=== PATIENT | female | born 1995 | race Caucasian/White ===

== ENCOUNTER 2018-01-04 19:11 | Emergency (ER) | payer OTHER ==
[2018-01-04] MEDS ORDERED: IBUPROFEN 600 MG TAB PO ONE (19:28)
[2018-01-04] MEDS ORDERED: HYDROCODONE/APAP 5/325 TAB PO ONE (21:53)
--- NOTE | 2018-01-04 21:56 | EDPHY ---
H & P Stated Complaint: Dog leash versus L palm lac Time Seen by Provider: 01/04/18 19:58 HPI/ROS: Chief complaint: Left hand laceration History of present illness: This is a 22-year-old female who presents to the emergency department for a left hand laceration. The palm of her hand got caught on the clip of a dog leash cutting it. She reports pain and bleeding that has been controlled with a dressing. No report of paresthesias or abnormal coolness in the hand or digits. She is still able to move the hand well. Her tetanus is up-to-date. - Personal History LMP (Females 10-55): 15-21 Days Ago Current Tetanus/Diphtheria Vaccine: Unsure Current Tetanus Diphtheria and Acellular Pertussis (TDAP): Unsure - Medical/Surgical History Hx Asthma: No Hx Chronic Respiratory Disease: No Hx Diabetes: No Hx Cardiac Disease: No Hx Renal Disease: No Hx Cirrhosis: No Hx Alcoholism: No Hx HIV/AIDS: No Hx Splenectomy or Spleen Trauma: No Other PMH: Denies. - Social History Smoking Status: Never smoked - Physical Exam Exam: General: Alert, nontoxic. Skin: Patient is a 3 cm avulsion injury extending from the palm up onto the lateral side of the left 5th finger. Inspection does not reveal foreign body or deep structure injury. Musculoskeletal: She is flexing and extending all joints in all digits in all perez although it causes pain in her left 5th finger. She can move the wrist well. Vascular: Capillary refill brisk in all digits of the left hand. Radial pulse 2 +. Neurologic: Sensation appears intact in all digits of the left hand as well as the rest the left hand. Constitutional: Initial Vital Signs Heart Rate 108 H 01/04/18 19:23 Respiratory Rate 18 01/04/18 19:23 Blood Pressure 135/84 H 01/04/18 19:23 O2 Sat (%) 99 01/04/18 19:23 O2 Delivery Mode Room Air Allergies/Adverse Reactions: antibiotics Allergy (Unknown, Uncoded 01/04/18 19:22) Anaphylaxis Home Medications: Medication Instructions Recorded NK [No Known Home Meds] 01/04/18 Medical Decision Making Procedures: Procedure: Laceration repair. Verbal consent was obtained from the patient. The 3 cm laceration on the left hand was anesthetized in the usual fashion. The wound was irrigated, draped and explored to its base with a gloved finger. There were no deep structures involved. No tendon injury was identified. No foreign bodies identified. The wound was repaired with 5 0 Prolene, 7 simple interrupted sutures. The wound repair was simple. The procedure was performed by myself. Procedure: Splint placement. An ulnar gutter splint was applied. After application of the splint I returned and re-examined the patient. The splint was adequately immobilizing the joint and distal to the splint the patient's circulation and sensation was intact. ED Course/Re-evaluation: Patient seen under the supervision of my secondary supervising physician Dr. Drake Montano. Patient presents for a laceration to her left hand. The hand does appear to be neurovascularly intact. She does appear to have good musculoskeletal control. The wound is anesthetized, cleaned, repaired, dressed and then placed in a splint to facilitate healing. I will refer her to a hand surgeon for recheck. Home care is discussed. Return precautions are given. The patient voiced understanding and agreement with plan. Differential Diagnosis: Included but not limited to laceration, foreign body contamination, deep structure injury - Data Points Medications Given: Discontinued Medications Hydrocodone Bitart/Acetaminophen ([place] 5/325) 1 tab PO EDNOW ONE Stop: 01/04/18 21:54 Last Admin: 01/04/18 22:24 Dose: Not Given Hydrocodone Bitart/Acetaminophen ([place] 5/325mg Prepack#6) 1 btl TAKEHOME EDNOW ONE Stop: 01/04/18 22:22 Last Admin: 01/04/18 22:22 Dose: 1 btl Ibuprofen (Motrin) 600 mg PO EDNOW ONE Stop: 01/04/18 19:29 Last Admin: 01/04/18 19:32 Dose: 600 mg Departure - Departure Disposition: Home, Routine, Self-Care Clinical Impression: Hand laceration Qualifiers: Encounter type: initial encounter Foreign body presence: without foreign body Laterality: left Qualified Code(s): S61.412A - Laceration without foreign body of left hand, initial encounter Condition: Good Instructions: Hydrocodone/Acetaminophen (By mouth), Care For Your Stitches (ED) , Laceration (ED), Acute Wounds (ED) Additional Instructions: Follow-up with a hand doctor next week for recheck Stitches to be removed in approximately 10 days If symptoms worsen or new symptoms develop return to the emergency room for recheck Referrals: NONE *PRIMARY CARE P,. [Primary Care Provider] - As per Instructions Ron Leong MD [Medical Doctor] - As per Instructions
[2018-01-04] MEDS ORDERED: HYDROCOD/APAP 5/325 PREPACK#6 BTL TAKEHOME ONE (22:21)
[2018-01-04 23:16] VITALS: BP 134/78
== END 2018-01-15 11:44 | disposition home or self-care (01) ==
PROC: 0HQGXZZ Repair Left Hand Skin, External Approach (ICD-10-PCS; principal; 2018-01-04)
DX: S61.412A Laceration without foreign body of left hand, initial encounter (principal); W23.0XXA Caught, crushed, jammed, or pinched between moving objects, initial encounter